=== PATIENT | male | born 1960 | race Two or more races ===

== ENCOUNTER 2017-10-15 07:16 | Day surgery (SDC) | payer BC ==
[~2017-10-15] VITALS: Ht 170.2 cm; Wt 65.8 kg
[2017-10-15] VITALS (7 sets, daily range): BP systolic 113–138; BP diastolic 84–93
[~2017-10-15 07:16] MED LIST: NKM
[2017-10-15] MEDS ORDERED: Midazolam 2mg/2ml Inj ONE (07:17)
[2017-10-15] MEDS ORDERED: fentaNYL 100 mcg/2 mL IV ONE (07:17)
[2017-10-15] MEDS ORDERED: LR 1000ml ONE (07:17)
[2017-10-15] MEDS ORDERED: Propofol 200mg/20ml IV ONE (07:17)
--- NOTE | 2017-10-15 09:06 | Pre-Procedure Note/Attestation ---
Pre-Procedure Note/Attestation Complete Prior to Procedure Planned Procedure: not applicable Procedure Narrative: colonoscopy Indications for Procedure Pre-Operative Diagnosis: screening colon Attestation I attest that I discussed the nature of the procedure; its benefits; risks and complications; and alternatives (and the risks and benefits of such alternatives ), prior to the procedure, with the patient (or the patient's legal customer contact representative). I attest that, if there was a reasonable possibility of needing a blood transfusion, the patient (or the patient's legal customer contact representative) was given the [facility] standardized written summary, pursuant to the Sudhir Maye Blood Safety Act ([place] Health and Safety Code # 1645, as amended). I attest that I re-evaluated the patient just prior to the surgery and that there has been no change in the patient's H&P, except as documented below: ROLANDA ESQUIVEL Oct 15, 2017 09:06
--- NOTE | 2017-10-15 09:07 | Short Stay Surgery H&P ---
History of Present Illness History of Present Illness Chief Complaint screening colon HPI Tank Temple is a 57 year old male who was admitted on for Colon Screening Patient History Allergies: Coded Allergies: PENICILLINS (Verified Allergy, Unknown, 10/15/17) PAST MEDICAL HISTORY: (1) Colon polyps (2) Hemorrhoids Past Surgeries: Social History: Medication History Scheduled No Known Medications* (NKM - No Known Medications*), 0 ., (Reported) Review of Systems Cardiovascular: Reports: no symptoms Respiratory: Reports: no symptoms Skeletal: Reports: no symptoms Gastrointestinal: Reports: no symptoms Genitourinary: Reports: no symptoms Neurologic: Reports: no symptoms Endocrine: Reports: no symptoms Hematologic: Reports: no symptoms Physical Exam Vital Signs Last Vital Signs Date Time Temp Pulse Resp B/P (MAP) Pulse Ox O2 Delivery O2 Flow Rate FiO2 10/15/17 08:00 98.5 87 18 123/92 97 Room Air Skin: normal HENT: normal Heart: normal Lungs: normal Abdomen: normal Extremities: normal Plan Plan of Care colonoscopy Final Diagnosis: Attestation Are the patient's medical conditions optimized for surgery? Attestation Response: yes ROLANDA ESQUIVEL Oct 15, 2017 09:07
[2017-10-15] MEDS ORDERED: LR 1000ml 1,000 ML IVLG SCH (09:20)
--- NOTE | 2017-10-15 09:21 | Endoscopy Procedure Note ---
Endoscopy Procedure Note Indication for Procedure: screening Procedures Performed: colonoscopy Operative Findings/Diagnosis: hemorrhoids Specimen: none Pt Tolerated Procedure Well: Yes Estimated Blood Loss: none Anesthesiologist: see chart Anesthesia: MAC Implant(s) used?: No 50 yrs or older w/o bx or poly: Yes 10yrs. F/U not recommended: Yes If not recommended, why?: Above average risk 10 yrs. F/U needed: Yes 18 years or older w/prev. colo: Yes <3yrs. since last colonoscopy: No ROLANDA ESQUIVEL Oct 15, 2017 09:21
--- NOTE | 2017-10-15 09:22 | Anethesia Preoperative Eval ---
Anesthesia Pre-op PMH/ROS General Date of Evaluation: Oct 15, 2017 Time of Evaluation: 09:00 Anesthesiologist: Saari ASA Score: ASA 2 Mallampati Score Class I : Soft palate, uvula, fauces, pillars visible Class II: Soft palate, uvula, fauces visible Class III: Soft palate, base of uvula visible Class IV: Only hard plate visible Mallampati Classification: Class I Surgeon: Obdulio Diagnosis: GI Bleed Surgical Procedure: Colonoscopy Anesthesia History: none Family History: no anesthesia problems Allergies: Coded Allergies: PENICILLINS (Verified Allergy, Unknown, 10/15/17) Anesthesia Pre-op Phys. Exam Physician Exam Last Vital Signs Date Time Temp Pulse Resp B/P (MAP) Pulse Ox O2 Delivery O2 Flow Rate FiO2 10/15/17 08:00 98.5 87 18 123/92 97 Room Air Constitutional: NAD Neurologic: CN 2-12 intact Cardiovascular: RRR Respiratory: CTA Gastrointestinal: S/NT/ND Airway Exam Mallampati Score: Class II MO: full ROM: full Teeth: intact Anesthesia Pre-op A/P Risk Assessment & Plan Plan: MAC Status Change Before Surgery: No Pre-Antibiotics Given Within 1 Hr of Incision: No Ramos Moon M.D. Oct 15, 2017 09:22
[2017-10-15] MEDS ORDERED: fentaNYL 100 mcg/2 mL IV PRN (09:30)
--- NOTE | 2017-10-15 15:45 | Procedure Note ---
DATE OF PROCEDURE: 10/15/2017 SURGEON: Rafal Mak M.D. PROCEDURE: Colonoscopy. ANESTHESIOLOGIST: Please see anesthesia sheet. INSTRUMENT: Olympus adult flexible colonoscope. INDICATION: Screening colonoscopy and history of colonic polyps. REASON FOR PROCEDURE: The procedure, risks, benefits, and possible consequences, including hemorrhage, aspiration, perforation and infection, and alternative treatments, were explained to the patient/legal guardian by Dr. Rafal Mak and the patient/legal guardian understood and accepted these risks. DESCRIPTION OF PROCEDURE: After informed consent was obtained and the patient was adequately sedated, first rectal exam performed which was positive for internal hemorrhoids. Then, the scope was advanced from the rectum into the cecum documented by appendiceal orifice, ileocecal valve, and right upper quadrant palpation. Then, scope was advanced into the terminal ileum. Quality of prep was very good. The patient had normal colonoscopy examination. No evidence of obvious polyp, mass, diverticulosis, or any other pathology seen. Retroflexion of the rectum showed evidence of internal hemorrhoids. SUMMARY FINDINGS: Normal colonoscopy examination except for internal hemorrhoids. RECOMMENDATIONS: Repeat colonoscopy in 10 years. Rafal Mak M.D. DR: TAJ JOB#: [id number] CC:
--- NOTE | 2017-10-15 18:13 | Cardiology Report ---
APPROVED REPORT EKG Measurement Heart [id number] Normal sinus rhythm Left anterior fascicular block Abnormal ECG
== END 2017-10-15 10:20 | disposition home or self-care (01) ==
LOC: GAS 07:16
DX: Z12.11 Encounter for screening for malignant neoplasm of colon (principal); Z86.010 Personal history of colon polyps; K64.8 Other hemorrhoids; Z88.0 Allergy status to penicillin
CPT/HCPCS: 45378; 93005; J2250; J2704; J3010; J7120; 94003; 94150